=== PATIENT | female | born 1985 | race Caucasian/White ===

== ENCOUNTER 2018-06-02 10:29 | Day surgery (SDC) | payer BC ==
[~2018-06-02 10:29] MED LIST: Lactated Ringers 1,000 ML IV SCH; ceFAZolin 1 GM in Premix Bag 1 BAG IV SCH
[2018-06-02] MEDS ORDERED: Lidocaine 1% 20 ML MDV ONE (11:33)
[2018-06-02] MEDS ORDERED: fentaNYL 100 MCG/2 ML SDV ONE ×2 (11:44→13:12)
[2018-06-02] MEDS ORDERED: Lidocaine 2% 5 ML SDV ONE (11:44)
[2018-06-02] MEDS ORDERED: Midazolam 1 MG/ML 2 ML SDV ONE (11:44)
--- NOTE | 2018-06-02 11:44 | PCM.PREANE ---
Preanesthetic Assessment - Anesthesia/Transfusion/Family Hx Anesthesia History: Prior Anesthesia Reaction Family History of Anesthesia Reaction: No Transfusion History: No Prior Transfusion(s) - Review of Systems General: No Symptoms Pulmonary: No Symptoms Cardiovascular: No Symptoms Gastrointestinal: No Symptoms Neurological: No Symptoms Other: Reports: None - Physical Assessment NPO Status Date: 06/01/18 O2 Sat by Pulse Oximetry: 100 Respiratory Rate: 18 Vital Signs: Last Vital Signs Temp 36.9 C 06/02/18 10:45 Pulse 54 L 06/02/18 10:45 Resp 18 06/02/18 10:45 BP 119/75 06/02/18 10:45 Pulse Ox 100 06/02/18 10:45 Height: 1.73 m Weight: 63.503 kg ASA Class: 1 Mental Status: Alert & Oriented x3 Airway Class: Mallampati = 1 Dentition: Reports: Normal Dentition ROM/Head Extension: Full Lungs: Clear to Auscultation, Normal Respiratory Effort Cardiovascular: Regular Rate, Regular Rhythm - Lab Values: Laboratory Last Values Urine HCG, Qual NEGATIVE (NEGATIVE) 06/02/18 10:43 - Allergies Allergies/Adverse Reactions: Allergies Allergy/AdvReac Type Severity Reaction Status Date / Time acetaminophen Allergy Vomiting Verified 05/27/18 10:49 [From Darvocet-N] propoxyphene napsylate Allergy Vomiting Verified 05/27/18 10:49 [From Darvocet-N] - Blood Blood Available: No - Anesthesia Plan Pre-Op Medication Ordered: None - Acknowledgements Anesthesia Type Planned: General Anesthesia Pt an Appropriate Candidate for the Planned Anesthesia: Yes Alternatives and Risks of Anesthesia Discussed w Pt/Guardian: Yes Pt/Guardian Understands and Agrees with Anesthesia Plan: Yes Additional Comments: PMH: none PLAN: GA-LMA PreAnesthesia Questionnaire HEENT History: Reports: Other (See Below) Other HEENT History: wears glasses/contacts Cardiovascular History: Reports: None Respiratory History: Reports: None Gastrointestinal History: Reports: None Genitourinary History: Reports: None UPHOLSTERER HELPER History: Reports: None Musculoskeletal History: Reports: Fracture Neurological History: Reports: Concussion Psychiatric History: Reports: None Endocrine/Metabolic History: Reports: None Hematologic History: Reports: None Immunologic History: Reports: None Oncologic (Cancer) History: Reports: None Dermatologic History: Reports: None - Past Surgical History Head Surgeries/Procedures: Reports: None HEENT Surgical History: Reports: Oral Surgery Other HEENT Surgeries/Procedures: repair of underbite- has 20 screws in jaw Female Surgical History: Reports: Breast Biopsy Musculoskeletal Surgical History: Reports: ORIF Other Musculoskeletal Surgeries/Procedures:: ORIF left arm (no hardware), hx of bunionectomy (has 1 screw_ - SUBSTANCE USE Smoking Status *Q: Never Smoker Recreational Drug Use History: No - HOME MEDS Home Medications: Home Meds . [No Known Home Meds] 05/27/18 [History] - CURRENT (IN HOUSE) MEDS Current Meds: Current Medications Cefazolin Sodium/Dextrose 1 gm (/ Premix) 50 mls @ 100 mls/hr IV ONCALL VIOLETTA Lactated Ringer's (Ringers, Lactated) 1,000 mls @ 100 mls/hr IV ASDIRECTED [facility] Last Admin: 06/02/18 11:00 Dose: 100 mls/hr Discontinued Medications Lidocaine HCl (Xylocaine 1%) Confirm Administered Dose 20 ml .ROUTE .STK-MED ONE Stop: 06/02/18 11:34
[2018-06-02] MEDS ORDERED: Lidocaine 2% 100 MG/5 ML Syringe ONE (11:45)
[2018-06-02] MEDS ORDERED: Propofol 200 MG/20 ML SDV ONE (11:45)
[2018-06-02] MEDS ORDERED: Ondansetron 4 MG/2 ML SDV ONE (12:38)
--- NOTE | 2018-06-02 12:51 | PCM.OPNOTE ---
- General Post-Op/Procedure Note Date of Surgery/Procedure: 06/02/18 Operative Procedure(s): L knee arthroscopy with limited synovectomy Pre Op Diagnosis: L knee pain Post-Op Diagnosis: L knee fat pad impingement Anesthesia Technique: General LMA Primary Surgeon: Tequila Sullivan Network Support Manager: Meli Terrazas EBL in mLs: 5 Condition: Good Free Text/Narrative:: tt=11 min Brief history: Patient is a 33-year-old female who was had complaint of progressive left knee pain. She cannot recall a specific injury. She has had conservative treatment including activity modification, use of anti-inflammatory medications, and diagnostic injection which did not give her lasting relief. She did have an MRI which was negative. Due to her continued pain, I did recommend surgical intervention. Risks and goals the procedure were discussed with the patient and document preoperatively. She agreed to proceed. Description of procedure: Patient is properly identified and brought to the operating room. She was transferred from the OR cart and placed on operating table in the supine position. General anesthesia was administered. After adequate anesthesia was obtained, well-padded tourniquet was applied to the left lower extremity. The left lower extremity was then prepped in standard fashion using ChloraPrep solution. It was then sterilely draped. A time out was performed to ensure correct site and procedure. Preoperative antibiotics were given. Surgical site had been marked preoperatively. An eschmarch was used to exsanguinate the left lower extremity and the tourniquet was inflated to 250 mmHg. A lateral portal arthrotomy was established. Blunt trocar and cannula were introduced into the suprapatellar space. Camera, inflow, and outflow were assembled. The suprapatellar space showed no signs of synovitis. The patellofemoral joint was then visualized. The joint surfaces appeared pristine. The patella appeared to track centrally. The fat pad did show some impingement along the inferior and medial border. No plica was noted. I extended down the medial and lateral gutter. No loose bodies were encountered. I then entered the medial compartment. A medial portal arthrotomy was established. A blunt probe was inserted. The meniscus was probed and found to be intact. There is no evidence of tearing. The joint surfaces again appeared pristine. I then entered the notch. Both ACL and PCL were visualized and probed and found to be intact. I then entered the lateral compartment. The lateral meniscus was extensively probed and found to be stable without tearing. The joint surfaces showed no signs of degenerative findings. I then reentered the patellofemoral joint. A 4.5 mm shaver was used to resect a small portion of the fat pad. No further impingement was noted. Instruments were then removed from the knee. The portal sites were closed with 3 -0 nylon. 1% lidocaine was injected along the portal tracts. Xeroform gauze was placed over the wounds and a bulky dressing was applied. Tourniquet was then deflated. She was awakened from her anesthetic and transferred back to the operative cart. She's brought to recovery room in stable condition. All needle and sponge counts were correct.
[2018-06-02] MEDS ORDERED: Acetaminophen/HYDROcodone 325-5 MG Tab PO PRN (12:53)
[2018-06-02] MEDS: fentaNYL 100 MCG/2 ML SDV IVPUSH PRN ×2 (13:14→13:20)
[2018-06-02] MEDS ORDERED: Meperidine PF 25 MG/ML Syringe IVPUSH SCH (13:15)
--- NOTE | 2018-06-02 13:22 | PCM.POSTAN ---
POST ANESTHESIA ASSESSMENT - MENTAL STATUS Mental Status: Oriented, Somnolent - VITAL SIGNS Pulse Rate: 53 SaO2: 95 Resp Rate: 18 Blood Pressure: 95/51 Temperature: 37.1 C - RESPIRATORY Respiratory Status: Respiratory Rate WNL, Airway Patent, O2 Saturation Stable - CARDIOVASCULAR CV Status: Pulse Rate WNL, Blood Pressure Stable - GASTROINTESTINAL GI Status: No Symptoms - PAIN Pain Score: 4 (pain was a 6 prior to fentanyl IV in pacu) - POST OP HYDRATION Hydration Status: Adequate & Stable - OBSERVATIONS Free Text/Narrative:: doing well in Phase I recovery.
--- NOTE | 2018-06-02 13:44 | PCM48HPAN ---
Post Anesthesia Note - EVALUATION WITHIN 48HRS OF ANESTHETIC Vital Signs in Normal Range: Yes Patient Participated in Evaluation: Yes Respiratory Function Stable: Yes Airway Patent: Yes Cardiovascular Function Stable: Yes Hydration Status Stable: Yes Pain Control Satisfactory: Yes Nausea and Vomiting Control Satisfactory: Yes Mental Status Recovered: Yes Pulse Rate: 53 SaO2: 99 Resp Rate: 18 Temperature: 37.1 C Blood Pressure: 107/67 - COMMENTS/OBSERVATIONS Free Text/Narrative:: Pt. feels "tired". Drinking water. Vitals stable. Good postop phase II recovery.
[2018-06-02] MEDS ORDERED: Ketorolac 30 MG/ML SDV IM ONE (14:06)
[2018-06-02] MEDS ORDERED: Acetaminophen 1,000 MG in Premix Bag 1 BAG IV ONE (14:07)
[2018-06-02] MEDS ORDERED: oxyCODONE 5 MG Tab PO ONE (14:07)
[2018-06-02 15:30] VITALS: BP 105/60
== END 2018-06-02 15:21 | disposition home or self-care (01) ==
LOC: MW.SDS 10:29
PROVIDERS: ATTEND Orthopaedic Surgery
DX: M25.862 Other specified joint disorders, left knee (principal); Z88.5 Allergy status to narcotic agent
CPT/HCPCS: 29875; 81025; J0131; J0690; J1885; J2001; J2250; J2405; J2704; J3010; J7120; 88304

== ENCOUNTER 2025-01-24 07:32 | Day surgery (SDC) | payer BC ==
[~2025-01-24 07:32] MED LIST changes: +Ketorolac 30 MG/ML SDV ONE; -Lactated Ringers 1,000 ML IV SCH; +Ondansetron 4 MG/2 ML SDV ONE; -ceFAZolin 1 GM in Premix Bag 1 BAG IV SCH; +fentaNYL 100 MCG/2 ML SDV ONE; +propofoL 1,000 MG/100 ML 100 ML ONE
[2025-01-24] MEDS ORDERED: Ondansetron 4 MG/2 ML SDV IVPUSH PRN (07:54)
[2025-01-24] MEDS ORDERED: fentaNYL 50 MCG/ML SDV IVPUSH PRN (07:54)
[2025-01-24] MEDS ORDERED: Albuterol 0.083% 2.5 MG/3 ML Neb Soln NEB PRN (07:54)
[2025-01-24] MEDS ORDERED: Naloxone 0.4 MG/ML SDV IVPUSH PRN (07:54)
[2025-01-24] MEDS: Scopalamine 1mg/3day Transdermal Patch TOP ONE (07:55)
[2025-01-24 08:13] LABS: MEAN PLATELET VOLUME 8.6 fL (9.4-12.3); NRBC ABSOLUTE 0.00 K/uL (0.00-0.02); NRBC PERCENT 0.0 /100WBC (0.0-0.2); PLATELET COUNT,PLT 290 K/uL (150-400); RED BLOOD CELL COUNT 4.18 M/uL (4.10-5.30); WHITE BLOOD CELL COUNT,WBC 5.06 K/uL (3.9-11.3)
[2025-01-24] MEDS: Lactated Ringers 1,000 ML IV SCH (08:18)
[2025-01-24] MEDS ORDERED: ePHEDrine 50 MG/ML SDV ONE (09:33)
[2025-01-24 13:55] VITALS: BP 98/72; PULSE 58
== END 2025-01-24 11:10 | disposition home or self-care (01) ==
LOC: MW.SDS 07:32
PROVIDERS: ATTEND Obstetrics & Gynecology
DX: N92.0 Excessive and frequent menstruation with regular cycle (principal); Z88.8 Allergy status to other drugs, medicaments and biological substances; Z88.5 Allergy status to narcotic agent; Z79.899 Other long term (current) drug therapy
CPT/HCPCS: 36415; 58563; 84703; 85027; A9270; J1596; J1885; J2003; J2704; J3010; J7120; 00952; J2405; J2765; J3490